=== PATIENT | female | born 1985 | race Caucasian/White ===

== ENCOUNTER 2023-01-03 21:25 | Emergency (ER) | payer OTHER ==
[~2023-01-03] VITALS: Ht 165.1 cm; Wt 63.5 kg
[2023-01-03] MEDS ORDERED: MORPHINE SULFATE INJ 2 MG/ML DISP.SYRIN IV ONE (22:30)
[2023-01-03] MEDS ORDERED: ONDANSETRON HCL/PF 4 MG/2 ML VIAL IV ONE (22:30)
[2023-01-03 22:55] LABS: BASOPHILS % (AUTO) 0.2 % (0.0-2.0); EOSINOPHILS % (AUTO) 0.5 % (0.0-6.0); HEMATOCRIT 36 % (33-45); LYMPHOCYTES # (AUTO) 1.2 K/uL (0.8-4.8); MEAN CORPUSCULAR HEMOGLOBIN 30 PG (26.0-33.0); MEAN CORPUSCULAR HGB CONC 33 g/dl (31.0-36.0); MEAN CORPUSCULAR VOLUME 90 fL (82-100); MONOCYTES # (AUTO) 0.8 K/uL (0.1-1.30); NEUTROPHILS # (AUTO) 6.3 K/uL (1.8-8.9); NEUTROPHILS % (AUTO) 76.3 % (43.0-81.0); PLATELET COUNT (AUTO) 341 K/uL (150-450); RED BLOOD CELL COUNT(AUTO) 3.99 MIL/uL (4.0-5.2); RED CELL DISTRIBUTION WIDTH 13.9 % (11.5-15.0); WHITE BLOOD COUNT (AUTO) 8.3 K/uL (4.3-11.0)
[2023-01-03] MEDS ORDERED: ONDANSETRON HCL/PF 4 MG/2 ML VIAL ONE (23:00)
[2023-01-03] MEDS ORDERED: MORPHINE SULFATE INJ 2 MG/ML DISP.SYRIN ONE (23:00)
[2023-01-03 23:15] LABS: ALBUMIN 3.2 g/dL (3.4-5.0); BILIRUBIN,DIRECT 0.1 mg/dL (0.0-0.2); BILIRUBIN,TOTAL 0.2 mg/dL (0.2-1.0); CALCIUM, SERUM 9.3 mg/dL (8.5-10.1); CREATININE 0.6 mg/dL (0.6-1.3); POTASSIUM 3.9 mmol/L (3.5-5.1); TOTAL PROTEIN, SERUM 7.4 g/dL (6.4-8.2)
[2023-01-03 23:19] LABS: APPEARANCE,URINE TURBID (CLEAR); BILIRUBIN,URINE 1+ (NEGATIVE); BLOOD, URINE 1+ Ery/uL (NEGATIVE); COLOR,URINE DARK YELLOW (YELLOW); KETONES,URINE TRACE mg/dL (NEGATIVE); LEUKOCYTE ESTERASE ,URINE 2+ (NEGATIVE); NITRITE, URINE POSITIVE (NEGATIVE); PREGNANCY TEST URINE QUAL NEGATIVE (NEGATIVE); PROTEIN,URINE 2+ mg/dl (NEGATIVE); UGLUCOSE 1+ mg/dL (NEGATIVE)
[2023-01-03 23:26] LABS: ADD URINE CULTURE YES; BACTERIA,URINE Few /HPF (None Seen); SQUAMOUS EPITHELIAL CELL,UR Rare /HPF (None Seen)
[2023-01-03] MEDS ORDERED: CEFTRIAXONE 1GM BAG (ER ONLY) 1 GM/50 ML PIGGYBACK IV ONE (23:30)
[2023-01-03] MEDS ORDERED: CEFTRIAXONE 1GM BAG (ER ONLY) 50 ML IV ONE ×2 (23:35→23:38)
[2023-01-04] MEDS ORDERED: AMOX-430 PO (01:27)
[2023-01-04 01:45] VITALS: BP 125/73; TEMP 98.5; O2SAT 99
== END 2023-01-04 01:46 | disposition home or self-care (01) ==
LOC: ER 21:36
DX: N12 Tubulo-interstitial nephritis, not specified as acute or chronic (principal); K52.9 Noninfective gastroenteritis and colitis, unspecified; I88.0 Nonspecific mesenteric lymphadenitis; Z20.822 Contact with and (suspected) exposure to COVID-19
CPT/HCPCS: 99285; 74176; 96365; 96375; 87426; 85025; 80048; 87086; 83690; 80076; 84703; 81001; 36415; J2405; J2270; J0696; C9803

== ENCOUNTER 2023-05-11 16:01 | Emergency (ER) | payer OTHER ==
[~2023-05-11] VITALS: Ht 162.6 cm; Wt 61.7 kg
[~2023-05-11 16:01] MED LIST: AMOX-430 PO
[2023-05-11 16:08] VITALS: BP 132/75; TEMP 98.3; O2SAT 99
[2023-05-11] MEDS ORDERED: KETOROLAC TROMETHAMINE 15 MG/ML VIAL IV ONE (17:30)
[2023-05-11] MEDS ORDERED: KETOROLAC TROMETHAMINE 15 MG/ML VIAL ONE (17:36)
[2023-05-11] MEDS ORDERED: LIDOCAINE HCL/PF 1% 30 ML VIAL TP ONE (18:00)
[2023-05-11] MEDS ORDERED: LIDOCAINE 1% INJ 50 ML MDV IJ ONE (18:27)
[2023-05-11] MEDS ORDERED: CEPH750C9 PO (19:12)
[2023-05-11 19:23] LABS: PREGNANCY TEST URINE QUAL NEGATIVE (NEGATIVE)
== END 2023-05-11 21:15 | disposition home or self-care (01) ==
LOC: ER 16:01
DX: S61.411A Laceration without foreign body of right hand, initial encounter (principal); W25.XXXA Contact with sharp glass, initial encounter; Y93.89 Activity, other specified; Y92.89 Other specified places as the place of occurrence of the external cause; Y99.8 Other external cause status
CPT/HCPCS: 12002; 73130; 84703; 96374; 99285; A6403; J1885; J3490

== ENCOUNTER 2025-05-18 10:41 | Emergency (ER) | payer OTHER ==
[~2025-05-18] VITALS: Ht 165.1 cm; Wt 72.6 kg
[~2025-05-18 10:41] MED LIST changes: +CEPH750C9 PO
[2025-05-18] MEDS ORDERED: AZIT250T PO (11:35)
[2025-05-18] MEDS ORDERED: IBUP-1490 PO (11:35)
[2025-05-18 12:04] VITALS: BP 115/71; TEMP 99.2; O2SAT 97
== END 2025-05-18 12:05 | disposition home or self-care (01) ==
LOC: ER 10:41
DX: J40 Bronchitis, not specified as acute or chronic (principal); R11.0 Nausea; R05.9 Cough, unspecified; Z20.822 Contact with and (suspected) exposure to COVID-19
CPT/HCPCS: 86403-TC; 87070-TC